=== PATIENT | female | born 2000 | race African-American/Black ===

== ENCOUNTER 2023-10-13 12:40 | Outpatient (CLI) | payer OTHER | END 2023-10-13 12:41 | disposition home or self-care (01) | LOC: CSHULT 12:40 | PROVIDERS: ATTEND Family Medicine | DX: O09.893 Supervision of other high risk pregnancies, third trimester (principal); Z3A.31 31 weeks gestation of pregnancy | CPT/HCPCS: 76805 ==

== ENCOUNTER 2023-11-05 01:18 | Inpatient (IN) | payer OTHER ==
[2023-11-05] MEDS ORDERED: Ondansetron PF 4 MG/2 ML Vial IVP PRN ×2 (01:44)
[2023-11-05] MEDS ORDERED: Bisacodyl 10 MG SUPP PR PRN (01:44)
[2023-11-05] MEDS ORDERED: Lanolin Ointment 7 GM TUBE TOP PRN (01:44)
[2023-11-05] MEDS ORDERED: Promethazine HCl 25 MG/ML VIAL IM PRN (01:44)
[2023-11-05] MEDS ORDERED: HYDROcodone/Acetaminophen 5/325 mg Tablet PO PRN ×2 (01:44)
[2023-11-05] MEDS ORDERED: Preparation H Ointment 28 GM TUBE PR PRN (01:44)
[2023-11-05] MEDS ORDERED: Boostrix 0.5 ML (Tdap) VIAL (>/=7 yrs of age) IM ONE (01:44)
[2023-11-05] MEDS ORDERED: Milk Of Magnesia 30 ML UDCUP PO PRN (01:44)
[2023-11-05] MEDS ORDERED: hydrALAZINE 20 MG/ML VIAL SLOW IVP PRN ×2 (01:44)
[2023-11-05] MEDS ORDERED: Benzocaine-Menthol 82.5 ML CAN TOP PRN (01:44)
[2023-11-05] MEDS ORDERED: Oxytocin 30 units/NS 500 ML 500 ML IV SCH (01:45)
[2023-11-05 01:59] VITALS: BMI 22.6
[2023-11-05 03:29] LABS: Hematocrit 27.9 % (34.9-44.5); Hemoglobin 9.3 g/dL (12.0-15.5); Mean Corpuscular HGB CONC 33.3 g/dL (32.0-36.0); Mean Corpuscular Hemoglobin 28.1 pg (27.0-33.0); Mean Corpuscular Volume 84.3 fl (81.6-98.3); Mean Platelet Volume 11.5 fl (7.4-10.4); Platelet Count 310 10x3/uL (150-450); RBC Distribution Width 14.6 % (11.5-14.5); Red Blood Cell (RBC) Count 3.31 10x6/uL (3.90-5.03); White Blood Cell (WBC) Count 15.2 10x3/uL (3.5-10.5)
[2023-11-05 03:59] LABS: HBSAg Index 0.22 S/CO (0-0.99); Hep B Surf Ag - L&D Non-Reactive S/CO (NonReactive)
[2023-11-05 04:01] LABS: Syphilis Antibody Nonreactive (Nonreactive); Syphilis Antibody Index 0.07 S/CO (<1.00 Non-Reactive)
[2023-11-05] MEDS: Ibuprofen 800 MG TAB PO SCH ×3 (05:57→21:33)
[2023-11-05] MEDS: Ferrous Sulfate 325 MG TAB PO SCH ×2 (11:41→19:57)
[2023-11-05] MEDS: Docusate 100 MG CAP PO SCH ×2 (11:41→21:33)
[2023-11-05] MEDS: Labetalol HCl 100 MG TAB PO SCH (21:34)
[2023-11-05] MEDS: OLANZapine 5 MG TAB PO SCH ×2 (21:34→21:37)
[2023-11-06] MEDS: Ibuprofen 800 MG TAB PO SCH ×3 (05:27→21:56)
[2023-11-06] MEDS: Ferrous Sulfate 325 MG TAB PO SCH ×2 (08:59→17:13)
[2023-11-06] MEDS: Docusate 100 MG CAP PO SCH ×2 (08:59→20:56)
[2023-11-06] MEDS: Labetalol HCl 100 MG TAB PO SCH ×2 (09:00→20:56)
[2023-11-06] MEDS: OLANZapine 5 MG TAB PO SCH (20:56)
[2023-11-07 04:57] VITALS: TEMP 98.4
[2023-11-07] MEDS: Ibuprofen 800 MG TAB PO SCH (06:05)
[2023-11-07] MEDS: Ferrous Sulfate 325 MG TAB PO SCH (08:10)
[2023-11-07] MEDS: Labetalol HCl 100 MG TAB PO SCH (08:11)
[2023-11-07] MEDS: Docusate 100 MG CAP PO SCH (08:11)
[2023-11-07 10:53] VITALS: BP 136/91
== END 2023-11-07 14:50 | disposition home or self-care (01) | DRG 776 ==
LOC: CSHERS 01:18 → CSHLD 01:37 → CSHPP 03:35
PROVIDERS: ADMIT Family Medicine; ATTEND Family Medicine
DX: O10.93 Unspecified pre-existing hypertension complicating the puerperium (principal); Z79.899 Other long term (current) drug therapy; Z82.49 Family history of ischemic heart disease and other diseases of the circulatory system
CPT/HCPCS: 36415; 85027; 86780; 86850; 86900; 86901; 87340; 99285; J2590